=== PATIENT | male | born 1955 | race Caucasian/White ===

== ENCOUNTER 2016-10-11 14:51 | Outpatient (CLI) | payer OTHER | END 2016-10-11 14:52 | disposition home or self-care (01) | DX: I65.21 Occlusion and stenosis of right carotid artery (principal) ==

== ENCOUNTER 2018-03-31 07:04 | Day surgery (SDC) | payer OTHER ==
[2018-03-31] MEDS ORDERED: LACTATED RINGERS 1,000 ML IV ONE (08:09)
[2018-03-31] MEDS ORDERED: LIDOCAINE-MPF 2% 5 ML VIAL IM ONE (08:48)
[2018-03-31] MEDS ORDERED: PROPOFOL 200 MG/20 ML VIAL IVP ONE (08:48)
[2018-03-31 09:21] VITALS: BP 123/63
== END 2018-03-31 07:05 | disposition home or self-care (01) ==
LOC: SDS 07:04
PROVIDERS: ATTEND Surgery
PROC: 0DBM8ZZ Excision of Descending Colon, Via Natural or Artificial Opening Endoscopic (ICD-10-PCS; principal; 2018-03-31 08:30)
DX: Z12.11 Encounter for screening for malignant neoplasm of colon (principal); D12.4 Benign neoplasm of descending colon; K64.8 Other hemorrhoids; I10 Essential (primary) hypertension; G47.30 Sleep apnea, unspecified; E78.5 Hyperlipidemia, unspecified; E11.9 Type 2 diabetes mellitus without complications; Z87.891 Personal history of nicotine dependence
CPT/HCPCS: 45380; J7120

== ENCOUNTER 2022-08-14 13:03 | Outpatient (CLI) | payer OTHER ==
--- NOTE | 2022-08-16 11:00 | MRI Report ---
PROCEDURE: SHOULDER WO - LT INDICATIONS: SHOULDER PAIN TECHNIQUE: Noncontrast oblique coronal T2 fast spin echo with fat saturation, oblique sagittal T1 spin echo and T2 fast spin echo with fat saturation, axial T1 spin echo and T2 fast spin echo with fat saturation t hrough the shoulder. COMPARISON: None. FINDINGS: Image quality: Excellent. There is a intrasubstance tear of the supraspinatus tendon at its attachment on the greater tuberosit y involving approximately 20-30% of the tendon thickness. Remainder of the rotator cuff tendons are i ntact. Bicipital tendon is normal position the bicipital groove. There is a chronically torn glenoid labrum present and there is associated moderate to severe glenohu meral joint degenerative change. There is also moderate to severe AC joint degenerative change present. There is a moderate-sized shoulder joint effusion present. There is a 2 cm loose body in the subcorac oid recess. IMPRESSION: 1. 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 2. Moderate to severe AC joint degenerative change. 3. Intrasubstance tear of the supraspinatus tendon at its attachment on the greater tuberosity involv ing 20-30% tendon thickness. 4. Moderate-sized shoulder joint effusion. 5. 2 cm loose body in the subcoracoid recess. Reviewed by: Tapan Wallace MD on 08/16/2022 10:59 AM PST Approved by: Tapan Wallace MD on 08/16/2022 10:59 AM PST Station ID: [id number]
== END 2022-08-14 13:04 | disposition home or self-care (01) ==
LOC: DI 13:03
PROVIDERS: ATTEND Physician Assistant
DX: M19.012 Primary osteoarthritis, left shoulder (principal); S43.492D Other sprain of left shoulder joint, subsequent encounter; M75.112 Incomplete rotator cuff tear or rupture of left shoulder, not specified as traumatic; M25.412 Effusion, left shoulder; M24.012 Loose body in left shoulder